=== PATIENT | female | born 1960 | race African-American/Black ===

== ENCOUNTER → 2018-10-07 | Outpatient (CLI) | payer OTHER ==
[2016-01-26 18:45] VITALS: BP 145/68
[~2018-10-07] MED LIST: CYCL10TA2 PO; FLUT9.9S NS; HYDR-2758 PO; HYDR12.53 PO; OXYC-327 PO
--- NOTE | 2018-10-07 15:37 | KCIC ---
MR of the left shoulder Indication: Left shoulder pain for one year, decreased range of motion. Technique: Standard multiplanar sequences are obtained. Findings: Artifact: No significant image degradation. Acromioclavicular joint:Intact. Rotator cuff: * Supraspinatus-infraspinatus tendon: Full-thickness tear of the supraspinatus tendon, measures about 15 mm AP diameter without significant retraction. There is diffuse tendinosis and partial tearing extending through the posterior rotator cuff * Subscapularis tendon: Tendinosis * Muscle bulk: Mild atrophy. * Subacromial subdeltoid bursa: Small effusion. Fluid: Small glenohumeral effusion. Glenohumeral cartilage: No acute defect or advanced DJD. Labrum: Degenerative superior labral tear. Biceps tendon: Moderate tendinosis, particularly proximal. Bones: No lesion or acute fracture. Soft tissue: No acute findings. Impression: 1. Generalized rotator cuff tendinosis. Full-thickness tear of the supraspinatus tendon, with partial tearing through the more posterior rotator cuff. Subdeltoid bursal effusion. 2. Superior labral tear. 3. Moderate biceps tendinosis. Electronically signed by: Shane Saleem MD (10/07/2018 3:34 PM) [facility]
== END | disposition home or self-care (01) ==
LOC: KCIC MRI 10:05
PROVIDERS: ATTEND Orthopaedic Surgery
DX: S43.432A Superior glenoid labrum lesion of left shoulder, initial encounter (principal); M25.412 Effusion, left shoulder; M75.22 Bicipital tendinitis, left shoulder; M62.512 Muscle wasting and atrophy, not elsewhere classified, left shoulder; X58.XXXA Exposure to other specified factors, initial encounter; Y93.89 Activity, other specified; Y92.89 Other specified places as the place of occurrence of the external cause; Y99.8 Other external cause status
CPT/HCPCS: 73221

== ENCOUNTER 2018-11-13 10:10 | Day surgery (SDC) | payer OTHER ==
[~2018-11-13] VITALS: Ht 154.9 cm; Wt 83.0 kg
[~2018-11-13 10:10] MED LIST changes: -HYDR-2758 PO; +HYDR-2761 PO; -HYDR12.53 PO; +HYDR12.575 PO; +IV RINGERS,LACTATED 1000ML 1,000 ML IV SCH; +LIDOCAINE 1% PF 2 ML VIAL. ID PRN; +ONDANSETRON PF 4 MG/2 ML VIAL. IV PRN; -OXYC-327 PO; +OXYC1TAB19 PO; +PROCHLORPERAZINE 10 MG/2 ML VIAL. IV PRN; +TRAM50TA PO; +fentaNYL PF VIAL 100 MCG/2 ML VIAL IV PRN
[2018-11-13] MEDS ORDERED: PROPOFOL 20 ML IV ONE (11:25)
[2018-11-13] MEDS ORDERED: ROCURONIUM 50 MG/5 ML VIAL. ONE (11:25)
[2018-11-13] MEDS ORDERED: LIDOCAINE 2% PF Vial for OR 5 ML VIAL. ONE (11:25)
[2018-11-13] MEDS ORDERED: fentaNYL PF VIAL 100 MCG/2 ML VIAL ONE ×3 (11:25→16:38)
[2018-11-13] MEDS ORDERED: ROPIVacaine 0.5% PF 20 ML VIAL. ONE (13:27)
[2018-11-13] MEDS ORDERED: MIDAZOLAM HCL/PF 2 MG/2 ML VIAL. ONE (13:33)
[2018-11-13] MEDS ORDERED: BUPIVAC MPF-EPI 0.5%-1:200000 30 ML VIAL. ONE (13:35)
[2018-11-13] MEDS ORDERED: EPINEPHrine VIAL 30 MG/30 ML VIAL ONE (13:35)
[2018-11-13] MEDS ORDERED: FAMOTIDINE 20 MG/2 ML VIAL ONE (13:39)
[2018-11-13] MEDS ORDERED: DEXAMETHASONE SOD PHOS 20 MG/5 ML VIAL. ONE (13:39)
[2018-11-13] MEDS ORDERED: ONDANSETRON PF 4 MG/2 ML VIAL. ONE (13:39)
[2018-11-13] MEDS ORDERED: DESFLURANE > 120 MINUTES IH ONE (15:09)
[2018-11-13] MEDS ORDERED: MORPHINE SULFATE 10 MG/ML VIAL. ONE (15:34)
[2018-11-13] MEDS ORDERED: NEOSTIGMINE METHYLSULFATE 5 MG/5 ML SYRINGE. ONE (15:35)
[2018-11-13] MEDS ORDERED: GLYCOPYRROLATE 1 MG/5 ML VIAL. ONE (15:35)
[2018-11-13] MEDS: fentaNYL PF VIAL 100 MCG/2 ML VIAL IV PRN ×4 (16:18→17:02)
[2018-11-13] MEDS ORDERED: MORPHINE SULFATE 2 MG/ML VIAL. ONE ×2 (17:13→17:46)
[2018-11-13] MEDS: MORPHINE SULFATE 2 MG/ML VIAL. IV PRN ×4 (17:20→18:07)
[2018-11-13] MEDS ORDERED: oxyCODONE/APAP 7.5/325 1 TAB TABLET PO ONE (18:00)
[2018-11-13] MEDS ORDERED: HYDROmorphone 2 MG/ML VIAL ONE (18:19)
[2018-11-13] MEDS: HYDROmorphone 2 MG/ML VIAL IV PRN ×4 (18:24→19:14)
--- NOTE | 2018-11-13 18:51 | DISCH ---
DISCHARGE INSTRUCTIONS Condition on Discharge Condition on Discharge: Stable Activity After Discharge Activity Instructions for Disc: Other, see below (fine motor use with arm at side only no lifting elbow away from side actively) Weight Bearing Status after Di: Other, see below Diet after Discharge Diet after Discharge: Regular Wound Incision Care Wound/Incision Care: Ice to area for comfort, Change dressing (May remove dressing in 3 days may then shower, no soaking until wound rechecked) Community/Resources/Services Services at Discharge: PT EVALUATE & TREAT (passive range of motion only to operative shoulder 1 month, expected 2 times a week PT over this timeframe) Contacting the after DC Call your doctor for: Concerns you may have Follow-Up Follow up with: Harrison 10-14 days REBECA SANDOVAL MD Nov 13, 2018 18:51
[2018-11-13] MEDS ORDERED: OXYC1TAB19 PO (18:52)
[2018-11-13 19:36] VITALS: BP 158/89
--- NOTE | 2018-11-13 19:47 | PDOC4 ---
Operative Note Operative Note Date of surgery: 11/13/2018 Preoperative diagnosis: Full-thickness rotator cuff tear left shoulder Postoperative diagnosis: Same plus partial-thickness subscapularis tear severe biceps anchor and superior labrum compromise along with subacromial impingement Operative procedure: Right shoulder arthroscopy rotator cuff repair biceps tenodesis debridement partial thickness subscapularis tear subacromial decompression Surgeon: Harrison Anesthesia: Gen. Estimated blood loss: 20 mL Complications: None Operative indications: Yvonne is a 58-year-old female well-known to me from previous surgery on the other shoulder that ultimately did well following an additional set back of adhesive capsulitis but is now coming along well has continued left shoulder pain unresponsive to nonoperative management and diagnosis of a rotator cuff tear on MRI. Please see my clinic note for additional details. I gone over with her risks benefits postoperative course of operative treatment including rationale for reattachment of the rotator cuff, assessment of and treatment of any other pathologies as appropriate the long recovery process associated possibility of nonhealing infection nerve or blood vessel damage medical or other anesthetic complications among others. All her questions were answered and she wishes to proceed with surgical evaluation and treatment. Operative text: Patient was identified procedure verified patient placed in the supine position on the operative table. After adequate amounts of general anesthesia were administered he was placed decubitus left side up using the beanbag for support and all bony prominences were well-padded. The left shoulder was prepped and draped in standard sterile fashion and after timeout was performed patient procedure identified and verified she was placed in 10 pounds of traction noted to have previously full range of motion with no instability a standard posterior portal was established an anterior portal established using spinal needle localization and the shoulder joint was systematically examined. She was noted to have severe fraying of the superior labrum which was trimmed back to stable tissue she appeared to have a type II SLAP tear and full-thickness tear the rotator cuff also had a partial thickness tear of the subscapularis which was trimmed back to stable condition but did not require further repair. glenohumeral joint was well preserved as were the capsule ligament structures. Given that the rotator cuff needed repair and SLAP repair is contraindicated due to high incidence of stiffness I elected to perform a biceps tenodesis therefore the biceps tendon was tagged and cut at its base with the bipolar electrocautery. Subacromial space was then entered she was noted to have a large anterior acromial spur which was converted to a type I acromion using the arthroscopic bur using cutting block technique. Traction sutures were first placed to mobilize the rotator cuff which had a complex tear extending in different directions. I elected then to perform a mini open approach and after preparation of the rotator cuff footprint with the arthroscopic bur prior to the open procedure Rotator cuff repair was then carried out by placing 2 absorbable [place] peek anchors along the medial row after preparation of the footprint to bleeding bony tissue without decortication. Tape sutures were placed in a mattress type fashion and tied with sliding locking knots to form a medial row repair lateral row was repaired with [facility] lateral row sutures which were tensioned to perform an excellent footprint repair watertight under all degrees of internal/external rotation. Shoulder portals and lateral mini open incision were closed with buried Vicryl subcuticular Monocryl Steri-Strips and Mastisol sterile dressings were applied patient was placed in an immobilizer and returned to recovery room in stable condition having tolerated procedure well REBECA SANDOVAL MD Nov 13, 2018 19:47
== END 2018-11-13 20:30 | disposition home or self-care (01) ==
LOC: SURG 10:10
PROVIDERS: ATTEND Orthopaedic Surgery
DX: S46.011A Strain of muscle(s) and tendon(s) of the rotator cuff of right shoulder, initial encounter (principal); S43.432A Superior glenoid labrum lesion of left shoulder, initial encounter; K58.9 Irritable bowel syndrome, unspecified; X58.XXXA Exposure to other specified factors, initial encounter; Y93.89 Activity, other specified; Y92.89 Other specified places as the place of occurrence of the external cause; Y99.8 Other external cause status; Z98.890 Other specified postprocedural states; Z79.899 Other long term (current) drug therapy; Z88.8 Allergy status to other drugs, medicaments and biological substances; Z88.6 Allergy status to analgesic agent
CPT/HCPCS: 23412; 29822; 29826; A7015; C1713; J0171; J0690; J1100; J1170; J2001; J2250; J2270; J2405; J2704; J2710; J2795; J3010; J3490; J7120

== ENCOUNTER → 2019-01-11 | Outpatient (CLI) | payer OTHER ==
[~2019-01-11] MED LIST changes: -IV RINGERS,LACTATED 1000ML 1,000 ML IV SCH; -LIDOCAINE 1% PF 2 ML VIAL. ID PRN; -ONDANSETRON PF 4 MG/2 ML VIAL. IV PRN; -PROCHLORPERAZINE 10 MG/2 ML VIAL. IV PRN; -fentaNYL PF VIAL 100 MCG/2 ML VIAL IV PRN
--- NOTE | 2019-01-11 14:00 | KCIC ---
Bilateral digital screening mammograms: Reason for examination: Routine screening. Comparison is made to previous studies dated 12/22/2015 and 10/25/2014. Interpretation was made with the benefit of CAD. The skin and nipples show no abnormalities. No abnormal axillary lymph nodes are seen. The breast parenchyma shows scattered fibroglandular density. (Breast density: Category B.) There are no dominant masses, suspicious calcifications or architectural distortions. Impression: No evidence of malignancy. Recommend routine screening. BI-RADS Category 1: Negative. "Our facility is accredited by the [employer] Mammography Program." This patient's information has been entered into a reminder system for the patient to be notified with the results of her examination and a target date for the next mammogram. Electronically signed by: Lynnette Bee MD (01/11/2019 1:57 PM) [id number]
== END | disposition home or self-care (01) ==
LOC: KCIC MAMMO 12:13
PROVIDERS: ATTEND Obstetrics & Gynecology
DX: Z12.31 Encounter for screening mammogram for malignant neoplasm of breast (principal)
CPT/HCPCS: 77067

== ENCOUNTER 2019-01-19 06:07 | Day surgery (SDC) | payer OTHER ==
[~2019-01-19 06:07] MED LIST changes: +ALEN70TA6 PO
[2019-01-19] MEDS ORDERED: PROCHLORPERAZINE 10 MG/2 ML VIAL. IV PRN (07:00)
[2019-01-19] MEDS ORDERED: HYDROmorphone 2 MG/ML VIAL IV PRN (07:00)
[2019-01-19] MEDS ORDERED: MORPHINE SULFATE 2 MG/ML VIAL. IV PRN (07:00)
[2019-01-19] MEDS ORDERED: IV RINGERS,LACTATED 1000ML 1,000 ML IV SCH (07:00)
[2019-01-19] MEDS ORDERED: ONDANSETRON PF 4 MG/2 ML VIAL. IV PRN (07:00)
[2019-01-19] MEDS ORDERED: LIDOCAINE 1% PF 2 ML VIAL. ID PRN (07:00)
[2019-01-19] MEDS ORDERED: fentaNYL PF VIAL 100 MCG/2 ML VIAL IV PRN (07:00)
[2019-01-19] MEDS ORDERED: PROPOFOL 20 ML IV ONE (07:04)
[2019-01-19] MEDS ORDERED: LIDOCAINE 2% PF 5 ML VIAL. ONE (07:04)
[2019-01-19] MEDS ORDERED: methylPREDNISolone ACETATE 80 MG/ML VIAL. IM ONE (07:30)
[2019-01-19] MEDS ORDERED: LIDOCAINE 1% Multi-Dose 20 ML VIAL. IJ ONE (07:30)
[2019-01-19] MEDS: fentaNYL PF VIAL 100 MCG/2 ML VIAL IV PRN ×2 (07:52→08:00)
--- NOTE | 2019-01-19 08:06 | DISCH ---
DISCHARGE INSTRUCTIONS Condition on Discharge Condition on Discharge: Stable Activity After Discharge Activity Instructions for Disc: No restrictions (immediate full active range of motion of left shoulder no slinger protection of any kind) Diet after Discharge Diet after Discharge: Regular Wound Incision Care Wound/Incision Care: Ice to area for comfort Community/Resources/Services Services at Discharge: PT EVALUATE & TREAT (immediate full active and passive range of motion left shoulder, progress to strengthening as tolerated) Contacting the DRErin after DC Call your doctor for: Concerns you may have Follow-Up Follow up with: Dr. Teryr 1 week REBECA TERRY MD Jan 19, 2019 08:06
[2019-01-19] MEDS ORDERED: OXYC1TAB15 PO (08:08)
[2019-01-19] MEDS ORDERED: oxyCODONE/APAP 5/325 1 TAB TABLET PO ONE (08:15)
[2019-01-19 08:30] VITALS: BP 138/82
--- NOTE | 2019-01-19 16:28 | PDOC4 ---
Operative Note Operative Note Date of surgery: 01/19/2019 Preoperative diagnosis: Adhesive capsulitis left shoulder following previous rotator cuff repair Postoperative diagnosis: Same Operative procedure: Manipulation under anesthesia left shoulder and injection glenohumeral joint Surgeon: Harrison Anesthesia: Deep sedation provided by anesthesia Complications: None Estimated blood loss: None Operative indications: Patient is a 58-year-old female who has had good return of her rotator cuff strength following a shoulder arthroscopy and rotator cuff repair biceps tenodesis but has failed to regain her full range of motion and has a 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 I had talked with her and her physical therapist about her progress and the recommendation of a manipulation under anesthesia as she does not seem to be progressing adequately. All her questions were answered she wishes to proceed with manipulation and injection Operative text: Patient was identified procedure verified patient placed in the supine position on the operating table. After adequate amounts of deep sedation were provided by anesthesia with propofol timeout was performed and patient procedure identified and verified the left shoulder was then examined and noted to have limited elevation with external rotation to about 90 elevation was limited due to scarring at about 120 and forward elevation and about a 20 limit of internal rotation stiffness as well there is no instability present. The shoulder was manipulated and regained full internal/external rotation and elevation in all planes without instability done under sterile conditions the shoulder joint was injected with 1 mL 80 mg Depo-Medrol under sterile conditions. I directed her to resume physical therapy as soon as possible with no sling immobilization or restrictions whatsoever follow-up about 1 week for recheck her progress REBECA SANDOVAL MD Jan 19, 2019 16:28
== END 2019-01-19 08:51 | disposition home or self-care (01) ==
LOC: SURG 06:07
PROVIDERS: ATTEND Orthopaedic Surgery
DX: M75.02 Adhesive capsulitis of left shoulder (principal); I10 Essential (primary) hypertension; Z88.6 Allergy status to analgesic agent; Z88.8 Allergy status to other drugs, medicaments and biological substances; M85.80 Other specified disorders of bone density and structure, unspecified site; Z98.51 Tubal ligation status; Z98.890 Other specified postprocedural states; Z83.3 Family history of diabetes mellitus; Z82.49 Family history of ischemic heart disease and other diseases of the circulatory system; Z83.49 Family history of other endocrine, nutritional and metabolic diseases; Z79.899 Other long term (current) drug therapy
CPT/HCPCS: 20610; 23700; J1040; J2001; J2704; J3010

== ENCOUNTER → 2019-04-27 | Day surgery (SDC) | payer OTHER ==
[~2019-04-27] MED LIST changes: +IV RINGERS,LACTATED 1000ML 1,000 ML IV SCH; +LIDOCAINE 1% PF 2 ML VIAL. ID PRN; +LIDOCAINE 2% PF 5 ML VIAL. ONE; +ONDANSETRON PF 4 MG/2 ML VIAL. IV PRN; +OXYC1TAB15 PO; +PROCHLORPERAZINE 10 MG/2 ML VIAL. IV PRN; +PROPOFOL 10 MG/ML (20ML) VIAL. IV ONE; +PROPOFOL 20 ML IV ONE; +fentaNYL PF VIAL 100 MCG/2 ML VIAL IV PRN
[2019-04-27 16:40] VITALS: BP 130/84
--- NOTE | 2019-04-28 11:32 | HP ---
ADMIT DATE: UPDATED HISTORY AND PHYSICAL REASON FOR ADMISSION: Rectal bleeding. HISTORY OF PRESENT ILLNESS: A 59-year-old -[place] female whose past medical history is significant for colonic polyps, history of hypertension and osteoporosis, who is seen with intermittent rectal bleeding that has been with and without straining at defecation and it had been going on for more than 2 weeks. Weight and appetite are stable. Past history of colon polyps is noted with prior colonoscopies. No family history of colon cancer presently. With the continued symptoms, she requests additional evaluation. PAST MEDICAL HISTORY: Colonic polyps, anemia, hypertension and osteoporosis. ALLERGIES: ACETAMINOPHEN, LISINOPRIL AND OXYCODONE. MEDICATIONS: Include Fosamax, hydrochlorothiazide and tramadol. FAMILY AND SOCIAL HISTORY: Significant for diabetes with her sister. PAST SURGICAL HISTORY: Status post hysterectomy. REVIEW OF SYSTEMS: Per records. PHYSICAL EXAMINATION: GENERAL: Reveals a well-nourished, well-developed -[place] female. VITAL SIGNS: Temperature is 98, pulse 78 and respiratory rate 18. HEENT EXAMINATION: Normocephalic, atraumatic head. Pupils and extraocular muscles not tested. Sclerae anicteric. NECK: Supple. LUNGS: Clear. CARDIOVASCULAR EXAMINATION: Reveals S1 and S2, without S3, S4 or appreciable murmur. ABDOMEN: Exam reveals a soft abdomen. Normoactive bowel sounds, without appreciable hepatosplenomegaly. EXTREMITIES: Exam reveal no cyanosis, clubbing or edema. IMPRESSION: Rectal bleeding, etiology to be determined. Differential includes arteriovenous malformations, inflammatory bowel disease, colon polyps, colon cancer, fissures and hemorrhoids. Therefore, I recommended the patient proceed with colonoscopy. Risks and benefits of the procedure were discussed with the patient and she is willing to proceed at this time. DIANELYS MODI MD DR: NELLA/anne JOB#: [id number] / [id number]
== END ==
LOC: ENDOS 15:26
PROVIDERS: ATTEND Internal Medicine Gastroenterology
DX: K64.0 First degree hemorrhoids (principal); K92.1 Melena; I10 Essential (primary) hypertension; Z86.010 Personal history of colon polyps; Z88.6 Allergy status to analgesic agent; Z88.5 Allergy status to narcotic agent; Z88.8 Allergy status to other drugs, medicaments and biological substances; Z90.710 Acquired absence of both cervix and uterus
CPT/HCPCS: 45378; J2001; J2704

== ENCOUNTER → 2020-11-06 | Outpatient (CLI) | payer OTHER ==
[2019-04-27 16:40] VITALS: BP 130/84
[~2020-11-06] MED LIST changes: -ALEN70TA6 PO; +ALEN70TA60 PO; -IV RINGERS,LACTATED 1000ML 1,000 ML IV SCH; -LIDOCAINE 1% PF 2 ML VIAL. ID PRN; -LIDOCAINE 2% PF 5 ML VIAL. ONE; -ONDANSETRON PF 4 MG/2 ML VIAL. IV PRN; -PROCHLORPERAZINE 10 MG/2 ML VIAL. IV PRN; -PROPOFOL 10 MG/ML (20ML) VIAL. IV ONE; -PROPOFOL 20 ML IV ONE; -fentaNYL PF VIAL 100 MCG/2 ML VIAL IV PRN
--- NOTE | 2020-11-06 16:08 | KCIC ---
Bilateral digital screening mammograms: Reason for examination: Routine screening. Comparison is made to previous studies dated back to 10/25/2014. Interpretation was made with the benefit of CAD. The skin and nipples show no abnormalities. No abnormal axillary lymph nodes are seen. The breast par enchyma shows scattered fibroglandular density. (Breast density: Category B.) There continues be some asymmetric parenchyma in the right breast but this is stable. There are no new dominant masses, susp icious calcifications or architectural distortions. Impression: No evidence of malignancy. Recommend routine screening. BI-RADS Category 2: Benign. "Our facility is accredited by the [employer] Mammography Program." This patient's information has been entered into a reminder system for the patient to be notified wit h the results of her examination and a target date for the next mammogram. Electronically signed by: Lynnette Bee MD (11/06/2020 4:06 PM) [id number]
== END ==
LOC: KCIC MAMMO 13:00
PROVIDERS: ATTEND Obstetrics & Gynecology
DX: Z12.31 Encounter for screening mammogram for malignant neoplasm of breast (principal)
CPT/HCPCS: 77067

== ENCOUNTER → 2021-04-05 | Outpatient (CLI) | payer OTHER ==
[2019-04-27 16:40] VITALS: BP 130/84
[~2021-04-05] MED LIST changes: -ALEN70TA60 PO; +ALEN70TA71 PO
--- NOTE | 2021-04-05 15:58 | KCIC ---
Indications: Right foot and right ankle pain Three-view right ankle study: No acute fracture or dislocation or lytic process is seen. The mortise ankle joint is intact. There is calcific tendinitis of the Achilles tendon. There is a round radioden sity seen anterior to the tibiotalar joint compartment measuring 15 mm. This could represent a periar ticular ganglion cyst. Three-view right foot study: No acute fracture or dislocation or lytic process is seen. No periosteal reaction is evident. There is minimal degenerative spurring of the first metatarsal phalangeal joint without joint space narrowing. Mild dorsal spurring of the first tarsal metatarsal joint is seen. No erosive arthropathy is seen. There is a moderate-sized plantar spur the calcaneus. IMPRESSION: No acute fracture. Calcific tendinitis of the Achilles tendon. Soft tissue nodule seen anterior to the tibiotalar joint compartment measuring 15 mm. This could repr esent a periarticular ganglion cyst. Clinical correlation is recommended. Electronically signed by: Marvin Kim MD (04/05/2021 3:56 PM) [id number]
== END ==
LOC: KCIC 15:21
PROVIDERS: ATTEND Family Medicine
DX: M77.51 Other enthesopathy of right foot and ankle (principal)
CPT/HCPCS: 73610; 73630

== ENCOUNTER → 2022-01-29 | Outpatient (CLI) | payer BC, OTHER ==
[2019-04-27 16:40] VITALS: BP 130/84
[~2022-01-29] MED LIST changes: +CYCL10TA19 PO; -CYCL10TA2 PO
--- NOTE | 2022-01-29 14:56 | KCIC ---
Bilateral digital screening mammograms: Reason for examination: Routine screening. Comparison is made to previous studies dated back to 12/22/2015. Interpretation was made with the benefit of CAD. The skin and nipples show no abnormalities. No abnormal axillary lymph nodes are seen. The breast par enchyma shows scattered fibroglandular density. (Breast density: Category B.) There are small nodules consistent with intramammary lymph nodes again seen bilaterally. There are no new dominant masses, s uspicious calcifications or architectural distortions. Impression: No evidence of malignancy. Recommend routine screening. BI-RADS Category 2: Benign. "Our facility is accredited by the [employer] Mammography Program." This patient's information has been entered into a reminder system for the patient to be notified wit h the results of her examination and a target date for the next mammogram. Electronically signed by: Lynnette Bee MD (01/29/2022 2:54 PM) [id number]
== END ==
LOC: KCIC MAMMO 13:58
PROVIDERS: ATTEND Obstetrics & Gynecology
DX: Z12.31 Encounter for screening mammogram for malignant neoplasm of breast (principal)
CPT/HCPCS: 77067